=== PATIENT | male | born 1995 | race Caucasian/White ===

== ENCOUNTER 2019-04-16 06:47 | Emergency (ER) | payer OTHER ==
[~2019-04-16] VITALS: Ht 188 cm; Wt 89.8 kg
== END 2019-04-16 07:40 | disposition home or self-care (01) ==
LOC: ED 06:47
DX: S81.811A Laceration without foreign body, right lower leg, initial encounter (principal); W22.8XXA Striking against or struck by other objects, initial encounter; F17.200 Nicotine dependence, unspecified, uncomplicated; Z88.0 Allergy status to penicillin; Z88.8 Allergy status to other drugs, medicaments and biological substances
CPT/HCPCS: 12002; 99282-25

== ENCOUNTER 2020-09-10 23:15 | Emergency (ER) | payer SELFPAY ==
[~2020-09-10] VITALS: Ht 188 cm; Wt 92.5 kg
[2020-09-10] MEDS ORDERED: CLEOCIN HCL300 MG PO (23:51)
[2020-09-10] MEDS ORDERED: HYDROCODON-ACE1 EA10 PO (23:51)
== END 2020-09-11 00:05 | disposition home or self-care (01) ==
LOC: ED 23:15
DX: K02.9 Dental caries, unspecified (principal); F17.200 Nicotine dependence, unspecified, uncomplicated; Z88.0 Allergy status to penicillin; Z88.8 Allergy status to other drugs, medicaments and biological substances
CPT/HCPCS: 99283-25